=== PATIENT | female | born 1975 | race Caucasian/White ===

== ENCOUNTER 2016-09-23 21:11 | Emergency (ER) | payer MEDICAID, OTHER ==
[~2016-09-23] VITALS: Ht 154.9 cm; Wt 84.0 kg
[2016-09-23 21:14] VITALS: Ht 154.9 cm; Wt 84.0 kg
[2016-09-23] MEDS ORDERED: ACETAMINOPHEN 325 MG TAB PO STA (22:42)
--- NOTE | 2016-09-23 23:19 | ERD ---
ER Documentation Chief Complaint Date/Time DATE: 09/23/16 TIME: 23:17 Chief Complaint vb for 1 month pt reports 5 pads per hour, abcd intact,nad HPI Patient is a 40-year-old female with no past medical history who presents to the ED with 1 month of vaginal bleeding. Patient states that she has irregular periods and states that her last normal menstrual period was sometime in June 2016. She states that she has been using 4 pads/hour for the last month however in the last week she has been feeling fatigue, slightly dizzy and lightheaded. She denies abnormal vaginal discharge. She is currently sexually active with one partner. She also complains of mild pelvic pain. She has no other complaints. She is not taking any hormone medications or iron and does not have a primary care provider. ROS All systems reviewed and are negative except as per history of present illness. Medications Home Meds Active Scripts Norethindrone (ORTHO MICRONOR) 0.35 Mg Tablet, 0.35 MG PO DAILY for 30 Days, TAB Prov:JESSICA SHOOK PA-C 09/24/16 Ferrous Sulfate* (Ferrous Sulfate*) 325 Mg Tabec, 325 MG PO BID for 90 Days, TAB Prov:JESSICA SHOOK PA-C 09/24/16 Allergies Allergies: Coded Allergies: No Known Allergy (Unverified , 09/23/16) PMhx/Soc Medical and Surgical Hx: pt denies Medical Hx History of Surgery: Yes (CESARIAN X 2) Anesthesia Reaction: No Hx Neurological Disorder: No Hx Respiratory Disorders: No Hx Cardiac Disorders: No Hx Psychiatric Problems: No Hx Miscellaneous Medical Probl: No Hx Alcohol Use: Yes (SOCIAL) Hx Substance Use: No Hx Tobacco Use: No Smoking Status: Never smoker FmHx Family History: No coronary disease, No diabetes, No other Physical Exam Vitals Vital Signs Date Time Temp Pulse Resp B/P Pulse Ox O2 Delivery O2 Flow Rate FiO2 09/23/16 21:14 98.1 93 16 128/67 96 Physical Exam GENERAL: Well-developed, well-nourished female. Appears in no acute distress. HEAD: Normocephalic, atraumatic. EYES: Pupils are equally reactive bilaterally. EOMs grossly intact. No conjunctival erythema. ENT: Moist mucous membranes. No uvula deviation. No kissing tonsils. No exudates. NECK: Supple. No lymphadenopathy or thyromegaly. No meningismus. negative kernig. negative brudinski. LUNG: Clear to auscultation bilaterally. No rhonchi, wheezing, rales or coarse breath sounds. HEART: Regular rate and rhythm. No murmurs, rubs or gallops. ABDOMEN: No scars, ecchymosis or rashes noted. Soft, nontender, and nondistended. Positive bowel sounds in all four quadrants. No rebound tenderness , no guarding. (-) McBurneys point tenderness. No CVA tenderness. PELVIC: No CMT. Very minimal bleeding coming from the cervical OS. BACK: No midline tenderness. Extremities: Equal pulses bilaterally. No peripheral clubbing, cyanosis or edema. No unilateral leg swelling. NEUROLOGIC: Alert and oriented. Moving all four extremities. 5/5 strength in all extremities. Normal speech. Steady gait. SKIN: Normal color. Warm and dry. No rashes or lesions. Capillary refill < 2 seconds Result Diagram: 09/23/16 2259 Results 24 hrs Laboratory Tests Test 09/23/16 22:56 White Blood Count 10.710^3/ul Red Blood Count 3.7410^6/ul Hemoglobin 5.9g/dl Hematocrit 22.2% Mean Corpuscular Volume 59.4fl Mean Corpuscular Hemoglobin 15.8pg Mean Corpuscular Hemoglobin Concent 26.6g/dl Red Cell Distribution Width 23.9% Platelet Count 55225^3/UL Mean Platelet Volume 10.3fl Neutrophils % 63.3% Lymphocytes % 24.8% Monocytes % 8.5% Eosinophils % 2.4% Basophils % 0.3% Nucleated Red Blood Cells % 0.4/100WBC Neutrophils # 6.810^3/ul Lymphocytes # 2.710^3/ul Monocytes # 0.910^3/ul Eosinophils # 0.310^3/ul Basophils # 0.010^3/ul Nucleated Red Blood Cells # 0.010^3/ul Blood Morphology Comment Urine Color DEEPALI Urine Clarity SL HAZY Urine pH 6.5 Urine Specific [place] 1.025 Urine Ketones TRACE Urine Nitrite NEGATIVE Urine Bilirubin 1+ Urine Ictotest NEGATIVE Urine Urobilinogen 1.0 E.U./dL Urine Leukocyte Esterase 1+ Urine Microscopic RBC >200/HPF Urine Microscopic WBC 5-10/HPF Urine Squamous Epithelial Cells FEW Urine Bacteria FEW Urine Hemoglobin 3+ Urine Glucose NEGATIVE% Urine Total Protein TRACE Current Medications Medications (Trade) Dose Ordered Sig/Caty Route PRN Reason Start Time Stop Time Status Last Admin Dose Admin Acetaminophen 650 mg 650 mg ONCE STAT PO 09/23/16 22:42 09/23/16 22:45 DC 09/23/16 22:57 Sodium Chloride (NS) 1,000 ml @ 1,000 mls/hr Q1H ONCE IV 09/24/16 00:00 09/24/16 00:59 UNV Procedures/MDM ER COURSE: I kept the patient and/or family informed of laboratory and diagnostic imaging results throughout the emergency room course. IMAGING STUDIES [place] [address] Radiology Main Line: [phone] DIAGNOSTIC IMAGING REPORT Patient: ANGELA AMEZQUITA : 1975 Age: 40 Sex: F MR #: [id number] DOS: 09/23/16 2242 Ordering MD: JESSICA SHOOK PA-C Location: RES Room/Bed: PROCEDURE: US Pelvis CLINICAL INDICATION: Pain. TECHNIQUE: Sonographic evaluation of the pelvis was performed utilizing both transabdominal and transvaginal technique. Images were reviewed on the high- resolution PACS workstation. COMPARISON: No prior studies are available for comparison. FINDINGS: The uterus is normal in size, echogenicity, and morphology. The uterus is 9.96 x 6.3 x 7.2 cm. The endometrium is slightly thickened measuring 1.28 cm in diameter. The right ovary measures 3.9 x 3.3 x 3.6 cm. The left ovary measures 4.3 x 2.9 x 4.5 cm. There is a 3.1 x 1.6 x 2.8 cm simple cyst in the right ovary. Ovaries are otherwise normal in appearance.. Color doppler vascular flow is demonstrated to both ovaries. There are no adnexal masses. There is no free fluid in the pelvis. IMPRESSION: Nonspecific slight endometrial thickening. Simple right ovarian cyst. Otherwise normal. RPTAT: [facility] .Terrance Sarmiento MD, MD Date Time Electronically viewed and signed by .Terrance Sarmiento MD, MD on 09/24/2016 00:50 .K/ CC: JESSICA SHOOK PA-C LABORATORY STUDIES CBC shows with a hemoglobin of 5.9. Urine is negative for nitrites however she does have 1+ leukocyte. MEDICAL DECISION MAKING: This is a 40-year-old female who presents with vaginal bleeding 1 month mild pelvic pain 1 month. Vital signs were reviewed. Patient is afebrile. Patient is not hypoxic. Patient is not toxic or ill-appearing. I consulted with my supervising physiciaN Dr Sutherland. Patient will be transferred over to ED 1 for blood transfusion. Type and screen and an IV were placed. Dr sutherland ordered the appropriate units of blood. Patient is stable at transfer to ED 1 with no new complaints. Plan was explained to patient. Patient will be monitored during transfusion. Once transfusion is complete and patient is hemodynamically stable and is stable for outpatient therapy, patient will be sent home with Ortho Evra Micronor and ferrous sulfate. Patient will be discharged home with instructions to recheck for new or worsening symptoms such as fever, nausea, weakness, LOC and to follow up with primary care in the next 1-2 days. Patient was advised to return to the ER for any new or worsening symptoms. Plan was discussed and patient and/or family understands and agrees. Home instructions were given. Departure Diagnosis: Primary Impression: Vaginal bleeding Additional Impression: Anemia Anemia type: unspecified type Qualified Code: D64.9 - Anemia, unspecified type Condition: Stable JESSICA SHOOK PA-C Sep 23, 2016 23:19
[2016-09-23 23:26] LABS: ADD UMIC YES; UR BILIRUBIN (Dip) 1+ (NEGATIVE); UR BLOOD (Dip) 3+ (NEGATIVE); UR GLUCOSE (Dip) NEGATIVE (NEGATIVE); UR KETONES (Dip) TRACE (NEGATIVE); UR LEUKOCYTE ESTERASE (Dip) 1+ (NEGATIVE); UR NITRITE (Dip) NEGATIVE (NEGATIVE); UR TOTAL PROTEIN (Dip) TRACE (NEGATIVE); UR UROBILINOGEN (Dip) 1.0 E.U./dL (0.1-1.0)
[2016-09-23 23:29] LABS: ADD SCAN DIFF NO
[2016-09-23 23:31] LABS: UR CLARITY SL HAZY (CLEAR); UR COLOR AMBER (YELLOW)
[2016-09-23 23:32] LABS: ABNORMAL IP MESSAGE 1; BASOPHILS % 0.3 % (0.0-2.0); EOSINOPHILS # 0.3 10^3/ul (0.0-0.5); EOSINOPHILS % 2.4 % (0.0-7.0); HEMATOCRIT 22.2 % (37.0-47.0); LYMPHOCYTES # 2.7 10^3/ul (0.8-2.9); LYMPHOCYTES % 24.8 % (15.0-51.0); MEAN CORPUSCULAR HEMOGLOBIN 15.8 pg (29.0-33.0); MEAN CORPUSCULAR HGB CONC 26.6 g/dl (32.0-37.0); MEAN CORPUSCULAR VOLUME 59.4 fl (82.0-101.0); MEAN PLATELET VOLUME 10.3 fl (7.4-10.4); MONOCYTE # 0.9 10^3/ul (0.3-0.9); MONOCYTES % 8.5 % (0.0-11.0); NEUTROPHIL # 6.8 10^3/ul (1.6-7.5); NEUTROPHILS % 63.3 % (39.0-77.0); NUCLEATED RED BLOOD CELLS% 0.4 /100WBC (0.0-0.0); PLATELET COUNT 390 10^3/UL (140-415); RED BLOOD COUNT 3.74 10^6/ul (4.20-5.40); RED CELL DISTRIBUTION WIDTH 23.9 % (11.5-14.5); WHITE BLOOD COUNT 10.7 10^3/ul (4.8-10.8)
[2016-09-23 23:44] LABS: HEMOGLOBIN 5.9 g/dl (12.0-16.0)
[2016-09-23 23:50] LABS: ICTOTEST NEGATIVE (NEGATIVE)
[2016-09-23 23:51] LABS: UR SQUAMOUS EPITHELIAL CELL FEW; URINE RBCS >200 /HPF (0)
[2016-09-23 23:52] LABS: UR BACTERIA FEW
[2016-09-24] MEDS ORDERED: SOD CHLORIDE 0.9% 1,000 ML IV ONE
--- NOTE | 2016-09-24 00:50 | RADRPT ---
PROCEDURE: US Pelvis CLINICAL INDICATION: Pain. TECHNIQUE: Sonographic evaluation of the pelvis was performed utilizing both transabdominal and tr ansvaginal technique. Images were reviewed on the high-resolution PACS workstation. COMPARISON: No prior studies are available for comparison. FINDINGS: The uterus is normal in size, echogenicity, and morphology. The uterus is 9.96 x 6.3 x 7.2 cm. The endometrium is slightly thickened measuring 1.28 cm in diameter. The right ovary measures 3.9 x 3.3 x 3.6 cm. The left ovary measures 4.3 x 2.9 x 4.5 cm. There is a 3.1 x 1.6 x 2.8 cm simple cyst in the right ovary. Ovaries are otherwise normal in appearance.. C olor doppler vascular flow is demonstrated to both ovaries. There are no adnexal masses. There is no free fluid in the pelvis. IMPRESSION: Nonspecific slight endometrial thickening. Simple right ovarian cyst. Otherwise normal. RPTAT: [facility] .Terrance Sarmiento MD, Date Time Electronically viewed and signed by .Terrance Sarmiento MD, MD on 09/24/2016 00:50 .K/
[2016-09-24] MEDS ORDERED: FER325 PO (02:10)
[2016-09-24] MEDS ORDERED: NORE0.354 PO (02:14)
[2016-09-24] MEDS ORDERED: DIPHENHYDRAMINE 50 MG INJ ONE (07:14)
[2016-09-24 07:27] VITALS: BP 101/72; PULSE 67; RESP 20; TEMP 97.8
[2016-09-24] MEDS ORDERED: DIPHENHYDRAMINE 50 MG INJ IV ONE (07:30)
== END 2016-09-24 07:31 | disposition home or self-care (01) ==
LOC: RES 21:11
DX: N93.9 Abnormal uterine and vaginal bleeding, unspecified (principal); D64.9 Anemia, unspecified; R40.2142 Coma scale, eyes open, spontaneous, at arrival to emergency department; R40.2252 Coma scale, best verbal response, oriented, at arrival to emergency department; R40.2362 Coma scale, best motor response, obeys commands, at arrival to emergency department; R10.2 Pelvic and perineal pain
CPT/HCPCS: 36415; 36430; 76856; 81001; 85025; 86850; 86900; 86901; 86920; J1200; P9016

== ENCOUNTER 2017-02-11 15:48 | Emergency (ER) | payer SELFPAY ==
[~2017-02-11] VITALS: Ht 167.6 cm; Wt 85.9 kg
[~2017-02-11 15:48] MED LIST: FER325 PO; NORE0.354 PO
[2017-02-11 15:53] VITALS: Ht 167.6 cm; Wt 85.9 kg
[2017-02-11] MEDS ORDERED: CEPH-443 PO (17:13)
[2017-02-11] MEDS ORDERED: IBUP-1542 PO (17:14)
[2017-02-11] MEDS ORDERED: SULF1TAB31 PO (17:14)
--- NOTE | 2017-02-11 17:27 | ERD ---
ER Documentation Chief Complaint Chief Complaint Complains of vag bleed x 2 days HPI This is a 41-year-old female presents to the ER with 2 vaginal abscesses. She states she got these 2 days ago and they are very painful. She is also complaining of pain along the left side of her groin. Patient denies any fevers or chills patient did not have any vaginal bleeding she does not have any vaginal discharge. She denies any urinary frequency or dysuria. ROS 12 point review of systems was done, all negative except per HPI. Medications Home Meds Active Scripts Ibuprofen* (Motrin*) 600 Mg Tab, 600 MG PO Q6, #30 TAB Prov:LAURIERAFFY SCHMIDT C 02/11/17 Sulfamethoxazole/Trimethoprim* (Bactrim Ds* Tablet) 1 Each Tablet, 1 TAB PO BID , #14 TAB Prov:RAFFY SULLIVAN C 02/11/17 Cephalexin* (Keflex*) 500 Mg Capsule, 500 MG PO BID for 7 Days, CAP Prov:RAFFY SULLIVAN C 02/11/17 Norethindrone (ORTHO MICRONOR) 0.35 Mg Tablet, 0.35 MG PO DAILY for 30 Days, TAB Prov:JESSICA SHOOK PA-C 09/24/16 Ferrous Sulfate* (Ferrous Sulfate*) 325 Mg Tabec, 325 MG PO BID for 90 Days, TAB Prov:JESSICA SHOOK PA-C 09/24/16 Allergies Allergies: Coded Allergies: No Known Allergy (Unverified , 09/24/16) PMhx/Soc History of Surgery: Yes (CESARIAN X 2) Anesthesia Reaction: No Hx Neurological Disorder: No Hx Respiratory Disorders: No Hx Cardiac Disorders: No Hx Psychiatric Problems: No Hx Miscellaneous Medical Probl: No Hx Alcohol Use: Yes (SOCIAL) Hx Substance Use: No Hx Tobacco Use: No Smoking Status: Never smoker Physical Exam Vitals Vital Signs Date Time Temp Pulse Resp B/P Pulse Ox O2 Delivery O2 Flow Rate FiO2 02/11/17 15:53 99.7 100 20 123/75 99 Physical Exam GENERAL: The patient is well developed and appropriate for usual state of health , in no apparent distress. HEENT: Atraumatic. CHEST: Clear to auscultation bilaterally. There are no rales, wheezes or rhonchi. HEART: Regular rate and rhythm. No murmurs, clicks, rubs or gallops. : patient has two vaginal abscess on the left labia majora, both are indurated and ttp. there is no surrounding erythema NEURO: Alert and oriented. Procedures/MDM This is a 41-year-old female presents to the ER with 2 vaginal abscesses, at this time abscesses are both indurated or not fluctuant. I&D is not indicated at this time, however patient will be sent home with Keflex and Bactrim. She was advised to apply warm compresses and to return to ER if symptoms worsen. Follow-up with her primary care doctor within 1-2 days or return to ER sooner if symptoms worsen. Decision making was shared with the patient she understands and agrees with plan. Departure Diagnosis: Primary Impression: Abscess Condition: Stable Patient Instructions: Abscess, Antiobiotic Treatment Only Additional Instructions: Call your primary care doctor TOMORROW for an appointment during the next 1-2 days.See the doctor sooner or return here if your condition worsens before your appointment time. RAFFY SULLIVAN Feb 11, 2017 17:27
== END 2017-02-11 19:39 | disposition home or self-care (01) ==
LOC: FTE 15:48
DX: N76.4 Abscess of vulva (principal)
CPT/HCPCS: 99284